=== PATIENT | female | born 1945 | race Caucasian/White ===

== ENCOUNTER 2023-02-14 12:54 | Outpatient (CLI) | payer OTHER | END 2023-02-14 12:55 | disposition home or self-care (01) | LOC: CSHCT 12:54 | PROVIDERS: ATTEND Internal Medicine | DX: R91.8 Other nonspecific abnormal finding of lung field (principal); J44.9 Chronic obstructive pulmonary disease, unspecified | CPT/HCPCS: 71250; 94060; 94726; 94729; 94760 ==

== ENCOUNTER 2024-12-23 12:50 | Outpatient (CLI) | payer OTHER | END 2024-12-23 12:51 | disposition home or self-care (01) | LOC: CSHCT 12:50 | PROVIDERS: ATTEND Internal Medicine | DX: R91.8 Other nonspecific abnormal finding of lung field (principal) | CPT/HCPCS: 71250 ==